=== PATIENT | male | born 1980 | race Caucasian/White ===

== ENCOUNTER 2019-06-28 12:50 | Emergency (ER) | payer MEDICARE ==
[2019-06-28 13:03] VITALS: BP 133/88
[2019-06-28] MEDS ORDERED: TORAdol 30 mg Injection ONE (13:25)
[2019-06-28] MEDS: TORAdol 30 mg Injection IM ONE (13:26)
--- NOTE | 2019-06-28 13:57 | XRAY ---
Indication: Pain. No known injury. Comparison: None 3 views of the right ankle demonstrates small posterior heel spur and a cuboid accessory ossicle. No other bony, articular, or soft tissue abnormalities.
--- NOTE | 2019-06-28 14:43 | ERPHSYRPT ---
- History of Present Illness Source: patient Exam Limitations: no limitations, physical impairment Patient Subjective Stated Complaint: Pt states that he woke up this morning with pain in his right ankle that radiates to the whole foot, denies any injury , denies past injury, rates pain 2/10 while having it elevated, rates pain 10/ 10 while walking on it Triage Nursing Assessment: Pt limped into the ER, no visible swelling or bruising to the right ankle or foot, vitals wnl, pulses normal, doesn't appear to be in any distress Physician History: Pt states that he woke up this morning with right ankle pain 1-2/10 severity, increases with ambulation, no relieving factors, mosty on right heel, denies any injury, denies past injury/fall/trauma Method of Injury: unknown Occurred: this morning Quality: constant Severity of Pain-Max: mild Severity of Pain-Current: mild Lower Extremities Pain: heel: right Modifying Factors: Improves With: nothing Associated Symptoms: unable to bear weight Allergies/Adverse Reactions: Penicillins Adverse Reaction (Verified 06/28/19 13:03) Home Medications: No Reportable Medications [No Reported Medications] 06/28/19 [History] Hx Influenza Vaccination/Date Given: No Hx Pneumococcal Vaccination/Date Given: No - Review of Systems Constitutional: No Symptoms Eyes: No Symptoms Ears, Nose, & Throat: No Symptoms Respiratory: No Symptoms Cardiac: No Symptoms Abdominal/Gastrointestinal: No Symptoms, Appetite Changes Genitourinary Symptoms: No Symptoms Musculoskeletal: Other (right ankle pain) Skin: No Symptoms Neurological: No Symptoms Psychological: No Symptoms Endocrine: No Symptoms Hematologic/Lymphatic: No Symptoms Immunological/Allergic: No Symptoms All Other Systems: Reviewed and Negative - Past Medical History Pertinent Past Medical History: Yes Other Medical History: allergies - Past Surgical History Past Surgical History: Yes Other Surgical History: tonsils - Social History Smoking Status: Never smoker Exposure to second hand smoke: Yes Drug Use: none Patient Lives Alone: No - Nursing Vital Signs Nursing Vital Signs: Initial Vital Signs Temperature 98.8 F 06/28/19 12:56 Pulse Rate 75 06/28/19 12:56 Blood Pressure 133/88 06/28/19 12:56 O2 Sat by Pulse Oximetry 98 06/28/19 12:56 Pain Scale Pain Intensity 2 - Physical Exam General Appearance: no apparent distress Eyes, Ears, Nose, Throat Exam: normal ENT inspection Neck Exam: normal inspection Cardiovascular/Respiratory Exam: chest non-tender Gastrointestinal/Abdominal Exam: non-tender, tenderness Back Exam: normal inspection Hips Exam: bilateral: non-tender, normal inspection, normal range of motion, no evidence of injury Legs Exam: bilateral leg: non-tender, normal inspection, normal range of motion , no evidence of injury Knees Exam: bilateral knee: non-tender, normal inspection, normal range of motion, no evidence of injury Ankle Exam: right ankle: bone tenderness (heel), bilateral ankle: non-tender, normal inspection, normal range of motion, no evidence of injury Foot Exam: bilateral foot: non-tender, normal inspection, normal range of motion , no evidence of injury DTR - Lower Extremities Exam: knee (R): 4+, knee (L): 4+, ankle (R): 4+, ankle ( L): 4+ Neuro/Tendon Exam: normal sensation, normal motor functions, normal tendon functions, responds to pain, no evidence tendon injury Mental Status Exam: alert, oriented x 3, cooperative Skin Exam: normal color SpO2 Interpretation: normal SpO2: 98 O2 Delivery: Room Air Ordered Tests: Active Orders 24 hr Category Date Time Status ANKLE (3 VIEWS) Stat Exams 06/28/19 13:22 Completed Medication Summary Discontinued Medications Generic Name Dose Route Start Last Admin Trade Name Buck PRN Reason Stop Dose Admin Ketorolac Tromethamine 30 mg 06/28/19 13:21 06/28/19 13:26 Toradol 30 Mg Injection IM 06/28/19 13:22 30 mg STAT ONE Administration Ketorolac Tromethamine Confirm 06/28/19 13:25 Toradol 30 Mg Injection Administered 06/28/19 13:26 Dose 30 mg .ROUTE .STK-MED ONE - Progress Progress: improved Progress Note: 06/28/19 14:41 pt. was given toradol shot x-rays showed small posterior heel spur pt. placed on ankle brace advised ice area x 15 min TID, can take OTC tylenol o motrin see pcp in 24-48 hrs for possible physical therapy - Departure Departure Disposition: Home Clinical Impression: Heel spur Condition: Stable Critical Care Time: No Referrals: DAVID GARCIA [Primary Care Provider] - Additional Instructions: Discharge/Care Plan SKYLAR WOODS JR was seen on 06/28/19 in the Emergency Room. The patient was counseled regarding Diagnosis,Lab results, Imaging studies, need for follow up and when to return to the Emergency Room. Prescriptions given: Discharge Note I have spoken with the patient and/or caregivers. I have explained the patient' s condition, diagnosis and treatment plan based on the information available to me at this time. I have answered the patient's and/or caregiver's questions and addressed any concerns. The patient and/or caregivers have as good understanding of the patient's diagnosis, condition and treatment plan as can be expected at this point. The vital signs have been stable. The patient's condition is stable and appropriate for discharge from the emergency department. The patient will pursue further outpatient evaluation with the primary care physician or other designated or consulting physician as outlined in the discharge instructions. The patient and/or caregivers are agreeable to this plan of care and follow-up instructions have been explained in detail. The patient and/or caregivers have received these instruction. The patient/and or caregivers are aware that any significant change in condition or worsening of symptoms should prompt an immediate return to this or the closest emergency department or call 911.
[2019-06-28 14:45] VITALS: PULSE 77; O2SAT 97
== END 2019-06-28 14:53 | disposition home or self-care (01) ==
LOC: ED 12:50
DX: M77.31 Calcaneal spur, right foot (principal); M25.571 Pain in right ankle and joints of right foot
CPT/HCPCS: 73610; 96372; 99284; J1885